=== PATIENT | female | born 1985 | race American Indian/Alaskan Native ===

== ENCOUNTER 2016-12-09 10:21 | Emergency (ER) | payer MEDICAID, OTHER ==
[2016-12-09 10:38] VITALS: BP 120/73
--- NOTE | 2016-12-09 13:00 | Emergency Department Report ---
ED ENT HPI - General Chief complaint: Dental/Oral Stated complaint: TOOTHACHE Time Seen by Provider: 12/09/16 12:39 Source: patient Mode of arrival: Ambulatory Limitations: No Limitations - History of Present Illness MD complaint: tooth pain -: Gradual 1 - decay to gumline. no trismus. Associated Symptoms: toothache. denies: fever, gum swelling - Related Data Previous Rx's Medication Instructions Recorded Last Taken Type Ibuprofen [Motrin 800 MG tab] 800 mg PO TID PRN #30 tablet 03/28/15 Unknown Rx Penicillin Vk [Veetids TAB] 500 mg PO QID #40 tablet 03/28/15 Unknown Rx traMADol [Ultram 50 MG tab] 50 mg PO Q6HR PRN #12 tablet 12/09/16 Unknown Rx Allergies Allergy/AdvReac Type Severity Reaction Status Date / Time No Known Allergies Allergy Unverified 03/28/15 15:22 ED Dental HPI - General Chief complaint: Dental/Oral Stated complaint: TOOTHACHE Time Seen by Provider: 12/09/16 12:39 Source: patient Mode of arrival: Ambulatory Limitations: No Limitations - History of Present Illness MD complaint: tooth pain Quality: aching Worsens with: chewing, hot/cold liquids Context- Dental: history of dental caries - Related Data Previous Rx's Medication Instructions Recorded Last Taken Type Ibuprofen [Motrin 800 MG tab] 800 mg PO TID PRN #30 tablet 03/28/15 Unknown Rx Penicillin Vk [Veetids TAB] 500 mg PO QID #40 tablet 03/28/15 Unknown Rx traMADol [Ultram 50 MG tab] 50 mg PO Q6HR PRN #12 tablet 12/09/16 Unknown Rx Allergies Allergy/AdvReac Type Severity Reaction Status Date / Time No Known Allergies Allergy Unverified 03/28/15 15:22 ED Review of Systems ROS: Stated complaint: TOOTHACHE Other details as noted in HPI Constitutional: denies: chills, fever Eyes: denies: eye pain, eye discharge, vision change ENT: dental pain. denies: ear pain, throat pain Respiratory: denies: cough, shortness of breath, wheezing Cardiovascular: denies: chest pain, palpitations Endocrine: no symptoms reported Gastrointestinal: denies: abdominal pain, nausea, diarrhea Genitourinary: denies: urgency, dysuria, discharge Musculoskeletal: denies: back pain, joint swelling, arthralgia Skin: denies: rash, lesions Neurological: denies: headache, weakness, paresthesias Psychiatric: denies: anxiety, depression Hematological/Lymphatic: denies: easy bleeding, easy bruising ED Past Medical Hx - Past Medical History Previous Medical History?: No - Surgical History Past Surgical History?: Yes Additional Surgical History: - Social History Smoking Status: Never Smoker Substance Use Type: None - Medications Home Medications: Home Medications Medication Instructions Recorded Confirmed Last Taken Type Ibuprofen [Motrin 800 MG tab] 800 mg PO TID PRN #30 tablet 03/28/15 Unknown Rx Penicillin Vk [Veetids TAB] 500 mg PO QID #40 tablet 03/28/15 Unknown Rx traMADol [Ultram 50 MG tab] 50 mg PO Q6HR PRN #12 tablet 12/09/16 Unknown Rx ED Physical Exam - General Limitations: No Limitations General appearance: alert, in no apparent distress - Head Head exam: Present: atraumatic, normocephalic - Eye Eye exam: Present: normal appearance - ENT ENT exam: Present: mucous membranes moist - Expanded ENT Exam Expanded Mouth exam: Absent: drooling, trismus Teeth exam: Present: dental caries, dental tenderness # - Neck Neck exam: Present: normal inspection - Respiratory Respiratory exam: Present: normal lung sounds bilaterally. Absent: respiratory distress - Cardiovascular Cardiovascular Exam: Present: regular rate, normal rhythm. Absent: systolic murmur, diastolic murmur, rubs, gallop - Neurological Exam Neurological exam: Present: alert, oriented X3 - Skin Skin exam: Present: warm, dry, intact, normal color. Absent: rash ED Course Vital Signs 12/09/16 10:36 Temperature 99.6 F Pulse Rate 84 Respiratory 18 Rate Blood Pressure 120/73 O2 Sat by Pulse 99 Oximetry Critical care attestation.: If time is entered above; I have spent that time in minutes in the direct care of this critically ill patient, excluding procedure time. ED Disposition Clinical Impression: Dental infection Disposition: DISCHARGED TO HOME OR SELFCARE Is pt being admited?: No Condition: Stable Instructions: Dental Caries (ED) Prescriptions: traMADol [Ultram 50 MG tab] 50 mg PO Q6HR PRN #12 tablet PRN Reason: Pain Referrals: PRIMARY CARE,MD [Primary Care Provider] - 3-5 Days
== END 2016-12-09 13:10 | disposition home or self-care (01) ==
LOC: ED 10:21
DX: K02.9 Dental caries, unspecified (principal)
CPT/HCPCS: 99282

== ENCOUNTER 2017-02-04 11:31 | Emergency (ER) | payer SELFPAY ==
[2017-02-04 12:41] VITALS: BP 114/70
--- NOTE | 2017-02-04 16:13 | Emergency Department Report ---
HPI - General Chief Complaint: Skin/Abscess/Foreign Body Time Seen by Provider: 02/04/17 16:03 - HPI HPI: Patient here reports this to right wrist off and on for months. She said she's had this same problem in the past and would go away and come back. She said it' s painful today. Denies any injury. Pain is 7 out of 10. No radiation of pain. Pain is achy only to touch. She says she was seen here in the past for the same thing and was told that she is to follow-up with surgery for biopsy of the area but she did not get to follow-up. She reports that they gave her Ultram last time and it helped. ED Past Medical Hx - Past Medical History Previous Medical History?: No - Surgical History Past Surgical History?: Yes Additional Surgical History: X 4 - Family History Family history: no significant - Social History Smoking Status: Never Smoker Substance Use Type: None - Medications Home Medications: Home Medications Medication Instructions Recorded Confirmed Last Taken Type traMADol [Ultram 50 MG tab] 50 mg PO Q6HR PRN #20 tablet 02/04/17 Unknown Rx ED Review of Systems ROS: Stated complaint: CYST Other details as noted in HPI Comment: All other systems reviewed and negative Constitutional: denies: chills, fever Respiratory: no symptoms reported Cardiovascular: denies: chest pain, palpitations, edema, syncope Gastrointestinal: denies: nausea, vomiting Musculoskeletal: denies: back pain, joint swelling Skin: other (mass right upper extremity) Neurological: denies: headache, numbness, paresthesias Physical Exam - Physical Exam Vital Signs: Vital Signs 02/04/17 12:38 Temperature 98.8 F Pulse Rate 106 H Respiratory 18 Rate Blood Pressure 114/70 O2 Sat by Pulse 98 Oximetry General: This is a 31-year-old female well-nourished well-developed in no acute distress. Physical Exam: Head: Normocephalic atraumatic Mouth: Moist, no pharyngeal exudate or erythema. Uvula is midline and oral airway is patent. No gingival enlargement or dental tenderness. No facial swelling. No peritonsillar abscesses. Neck: Supple, no C-spine tenderness, no tracheal deviation. Nontender to palpate. no adenopathy Lungs: Air to auscultate bilaterally no rhonchi wheezes or rales. Normal work of breathing extremity; No CCE. +2 pulses. No neurovascular compromise. No signs of tendon injury. Extremity with good color, sensation, movement in temperature. Cardiovascular: S1-S2, regular rate rhythm. No murmurs. Capillary refill less than 3 seconds. Skin: clean Dry and intact. Noted dime sizemass to right dorsal aspect of his wrist . Patient able to flex and extend her wrist without any pain. Positive induration without any fluctuance. Tender to Palpate. No signs of infection noted. Psych: Normal mood and behavior. ED Course Vital Signs 02/04/17 12:38 Temperature 98.8 F Pulse Rate 106 H Respiratory 18 Rate Blood Pressure 114/70 O2 Sat by Pulse 98 Oximetry Vital Signs 02/04/17 02/04/17 12:38 16:45 Temperature 98.8 F Pulse Rate 106 H 88 Respiratory 18 Rate Blood Pressure 114/70 O2 Sat by Pulse 98 Oximetry ED Medical Decision Making - Medical Decision Making ED course:Patient discharged home with diagnosis of mass that needs to be evaluated by surgeon. She doesn't have a primary care physician so I referred her to [facility] and also to surgery. He was undescended discharge instruction and treatment plan. VSS stable and she is afebrile prior to discharge. Given prescription for Ultram prior to discharge. Critical care attestation.: If time is entered above; I have spent that time in minutes in the direct care of this critically ill patient, excluding procedure time. ED Disposition Clinical Impression: Mass of right upper extremity Pain, upper extremity Qualifiers: Laterality: right Qualified Code(s): M79.601 - Pain in right arm Disposition: DISCHARGED TO HOME OR SELFCARE Is pt being admited?: No Does the pt Need Aspirin: No Condition: Stable Instructions: Superficial Mass Needle Biopsy (ED) Prescriptions: traMADol [Ultram 50 MG tab] 50 mg PO Q6HR PRN #20 tablet PRN Reason: Pain Referrals: [facility] [Outside] - 2-3 Days SARAH CONTRERAS MD [Staff Physician] - 2-3 Days Forms: Work/School Release Form(ED)
== END 2017-02-04 16:47 | disposition home or self-care (01) ==
LOC: ED 11:31
DX: R22.31 Localized swelling, mass and lump, right upper limb (principal); M79.601 Pain in right arm
CPT/HCPCS: 99282

== ENCOUNTER 2017-12-05 12:23 | Emergency (ER) | payer SELFPAY ==
[2017-12-05 12:28] VITALS: BP 116/67
--- NOTE | 2017-12-05 14:17 | Emergency Department Report ---
HPI - General Chief Complaint: Dental/Oral Time Seen by Provider: 12/05/17 14:09 - HPI HPI: 32 yo female presents with tooth pain. Has broken tooth at area. Upper left ridge. No facial tenderness. Gradual 10/10 pain. No neck pain. No respiratory distress. ED Past Medical Hx - Past Medical History Previous Medical History?: No - Surgical History Additional Surgical History: X 4 - Social History Smoking Status: Never Smoker Substance Use Type: None - Medications Home Medications: Home Medications Medication Instructions Recorded Confirmed Last Taken Type Ibuprofen 800 mg PO TID PRN #20 tablet 12/05/17 Unknown Rx Penicillin V Potassium 500 mg PO QID 10 Days #40 tablet 12/05/17 Unknown Rx traMADol [Ultram 50 MG tab] 50 mg PO Q4HR PRN #20 tablet 12/05/17 Unknown Rx ED Review of Systems ROS: Stated complaint: TOOTHACHE Other details as noted in HPI Constitutional: denies: chills, fever ENT: denies: ear pain, throat pain Respiratory: denies: cough, shortness of breath Cardiovascular: denies: chest pain Physical Exam - Physical Exam Vital Signs: Vital Signs 12/05/17 12:26 Temperature 98.3 F Pulse Rate 90 Respiratory 18 Rate Blood Pressure 116/67 O2 Sat by Pulse 99 Oximetry Physical Exam: General: Well-appearing, no acute distress HEENT: Normocephalic atraumaticanicteric sclera Nose: no rhinorrhea Oropharynx: tooth #13, decayed to root with surrounding redness and edema no fluctuance Neck: supple, no meningismus no edema Chest: Clear to auscultation bilaterally no rales rhonchi no wheezes Cardiac: Regular rate and rhythm no murmurs no rubs no gallops Neuro: Moves all extremities 4, no gross deficits Psychiatric: Alert and oriented 4 normal aspect normal judgment normal inside ED Course Vital Signs 12/05/17 12:26 Temperature 98.3 F Pulse Rate 90 Respiratory 18 Rate Blood Pressure 116/67 O2 Sat by Pulse 99 Oximetry ED Medical Decision Making - Medical Decision Making Infected dental caries at tooth socket #13 without facial swelling or neck swelling Prescription: norco, IBU, penicillin Critical care attestation.: If time is entered above; I have spent that time in minutes in the direct care of this critically ill patient, excluding procedure time. ED Disposition Clinical Impression: Infected dental caries Disposition: DC- TO HOME OR SELFCARE Is pt being admited?: No Does the pt Need Aspirin: No Condition: Stable Instructions: Dental Abscess (ED), Dental Caries (ED) Prescriptions: Ibuprofen 800 mg PO TID PRN #20 tablet PRN Reason: Pain Penicillin V Potassium 500 mg PO QID 10 Days #40 tablet traMADol [Ultram 50 MG tab] 50 mg PO Q4HR PRN #20 tablet PRN Reason: Pain Referrals: [facility] [Outside] - 3-5 Days [facility] [Outside] - 3-5 Days Time of Disposition: 14:18
== END 2017-12-05 15:35 | disposition home or self-care (01) ==
LOC: ED 12:23
DX: K02.9 Dental caries, unspecified (principal)
CPT/HCPCS: 99282

== ENCOUNTER 2018-01-15 18:07 | Emergency (ER) | payer SELFPAY ==
[2018-01-15 18:23] VITALS: BP 123/65
[2018-01-15] MEDS ORDERED: MOTRIN PO ONE (20:03)
--- NOTE | 2018-01-15 20:07 | Emergency Department Report ---
HPI - General Chief Complaint: Dental/Oral Time Seen by Provider: 01/15/18 20:03 - HPI HPI: The patient is a 32-year-old female with a long history of dental issues, presents for evaluation of mouth and tooth pain. The patient reports left upper toothache for the past one day, constant, throbbing in quality, severe, exacerbated with attempted eating/chilling. The patient denies trauma to the mouth, patient swelling, purulent drainage or discharge from the mouth, dyspnea , neck stiffness, dysphagia, stridor, drooling, difficulty tolerating secretions, dysphonia, hoarseness of voice, abdominal pain. ED Past Medical Hx - Past Medical History Previous Medical History?: No - Surgical History Past Surgical History?: Yes Additional Surgical History: X 4 - Social History Smoking Status: Never Smoker Substance Use Type: None - Medications Home Medications: Home Medications Medication Instructions Recorded Confirmed Last Taken Type Ibuprofen 800 mg PO TID PRN #20 tablet 12/05/17 Unknown Rx traMADol [Ultram 50 MG tab] 50 mg PO Q4HR PRN #20 tablet 12/05/17 Unknown Rx Chlorhexidine Mouthwash [Peridex] 15 ml MM BID #1 bottle 01/15/18 Unknown Rx Ibuprofen [Motrin] 800 mg PO Q8HR PRN #15 tablet 01/15/18 Unknown Rx Penicillin Vk [Veetids TAB] 250 mg PO QID #20 tablet 01/15/18 Unknown Rx traMADol [Ultram 50 MG tab] 50 mg PO Q6HR PRN #20 tablet 01/15/18 Unknown Rx ED Review of Systems ROS: Stated complaint: TOOTHACHE Other details as noted in HPI Constitutional: denies: fever ENT: reports toothache denies: throat or neck pain Respiratory: denies: cough, shortness of breath Cardiovascular: denies: chest pain Endocrine: denies unexplained weight loss or gain Gastrointestinal: denies: abdominal pain, nausea Genitourinary: denies: dysuria Musculoskeletal: denies: leg swelling Skin: denies: rash Neurological: denies: headache Hematological/Lymphatic: denies: easy bleeding or easy bruising Psych: denies sadness or hopelessness Physical Exam - Physical Exam Vital Signs: Vital Signs 01/15/18 18:20 Temperature 98.6 F Pulse Rate 95 H Respiratory 16 Rate Blood Pressure 123/65 O2 Sat by Pulse 98 Oximetry Physical Exam: General: well-nourished, well-developed, no acute distress Head: Normocephalic, atraumatic Eyes: normal sclera ENT: Mucous membranes are pink and moist , multiple dental caries present throughout, General caries extending into the pole present to the left upper first molar, adjacent gingival erythema present, no gingival fluctuance Neck: trachea midline, neck supple, No neck stiffness, no cervical adenopathy Respiratory: Breath sounds equal bilaterally, no wheezing, rales, or rhonchi Cardio: S1 and S2 present, no murmurs, rubs, gallops, capillary refill is brisk Musc: No pitting edema Skin: No rash Neuro: no facial drooping, normal speech Psych: Normal affect ED Course Vital Signs 01/15/18 18:20 Temperature 98.6 F Pulse Rate 95 H Respiratory 16 Rate Blood Pressure 123/65 O2 Sat by Pulse 98 Oximetry ED Medical Decision Making - Medical Decision Making The patient's and examined by myself. The patient's found to have severe dental caries and adjacent gingival erythema concerning for mild gingival infection. The patient given pain medicine. The patient will be given a prescription for penicillin VK and pain medicine. The patient was reevaluated and reported that their symptoms were markedly improved. The patient is stable for discharge with outpatient follow-up. The patient is given follow-up and return instructions. The patient expressed understanding and agreed with the plan. The patient is discharged in stable condition. Critical care attestation.: If time is entered above; I have spent that time in minutes in the direct care of this critically ill patient, excluding procedure time. ED Disposition Clinical Impression: Dental caries extending into pulp, Toothache Disposition: TO HOME OR SELFCARE Is pt being admited?: No Does the pt Need Aspirin: No Condition: Stable Instructions: Dental Caries (ED), Toothache (ED) Prescriptions: Chlorhexidine Mouthwash [Peridex] 15 ml MM BID #1 bottle Ibuprofen [Motrin] 800 mg PO Q8HR PRN #15 tablet PRN Reason: Pain Penicillin Vk [Veetids TAB] 250 mg PO QID #20 tablet traMADol [Ultram 50 MG tab] 50 mg PO Q6HR PRN #20 tablet PRN Reason: Pain Referrals: [facility] [Outside] - 3-5 Days [facility] [Outside] - 3-5 Days Time of Disposition: 20:04
== END 2018-01-15 20:33 | disposition home or self-care (01) ==
LOC: ED 18:07
DX: K02.9 Dental caries, unspecified (principal)
CPT/HCPCS: 99282

== ENCOUNTER 2019-05-07 14:56 | Emergency (ER) | payer MEDICAID, OTHER ==
[2019-05-07 15:11] VITALS: BP 117/72
--- NOTE | 2019-05-07 15:12 | Emergency Department Report ---
Blank Doc - Documentation Documentation: Patient report toothache x 2 days located left side . Located on left side No distress
[2019-05-07] MEDS ORDERED: ULTRAM PO ONE (15:26)
[2019-05-07] MEDS ORDERED: TRIMOX PO ONE (15:26)
--- NOTE | 2019-05-07 15:26 | Emergency Department Report ---
Abscess Boil HPI - HPI Chief Complaint: Dental/Oral Stated Complaint: TOOTHACHE Time Seen by Provider: 05/07/19 15:10 Duration: 5 Days Location: Other Severity: Mild History: Yes Pain, Yes Previous History, No Fever, No Purulent Drainage, No Numbness, No Foreign Body, No Insect Bite HPI: Patient is a 33-year-old female who comes to the ER complaining of left- sided dental pain for 3 days. It is lower left mandibular molar area. There is no abscess. Patient is approximately 6 weeks. In review of the EMR patient has been here numerous times for dental caries. I discussed with the patient that we were doing this only temporarily fixing the problem and that she needs to see a dentist. ABCs intact. Vital signs are stable. There is no trismus. She is taking by mouth. There is no abscess. Home Medications: Previous Rx's Medication Instructions Recorded Last Taken Type Amoxicillin [Trimox CAP] 500 mg PO BID #20 capsule 05/07/19 Unknown Rx traMADol [Ultram] 50 mg PO Q6HR PRN #10 tablet 05/07/19 Unknown Rx Allergies/Adverse Reactions: Allergies Allergy/AdvReac Type Severity Reaction Status Date / Time No Known Allergies Allergy Verified 05/07/19 15:00 ED Review of Systems ROS: Stated complaint: TOOTHACHE Other details as noted in HPI Comment: All other systems reviewed and negative ED Past Medical Hx - Past Medical History Previous Medical History?: No - Surgical History Past Surgical History?: Yes Additional Surgical History: X 4 - Social History Smoking Status: Never Smoker Substance Use Type: None - Medications Home Medications: Home Medications Medication Instructions Recorded Confirmed Last Taken Type Amoxicillin [Trimox CAP] 500 mg PO BID #20 capsule 05/07/19 Unknown Rx traMADol [Ultram] 50 mg PO Q6HR PRN #10 tablet 05/07/19 Unknown Rx ED Abscess Boil Physical Exam - Exam General: Vital signs noted. No distress. Alert and acting appropriately. Exam: WDWN patient in NAD. VS per RN flow sheet. Alert and oriented to person, place and time. S1-S2. No S3 or S4. No systolic or diastolic murmur. No JVD. No pitting edema. Lungs clear to auscultation bilaterally anteriorly and posteriorly. Abdomen soft nontender bowel soundsx4. Moves all extremities well. Mood and affect appropriate. diffuse caries noted mandibular left side. no abscess. TEETH 17-20 INVOLVED ED Course Vital Signs 05/07/19 15:10 Temperature 98.3 F Pulse Rate 102 H Respiratory 16 Rate Blood Pressure 117/72 O2 Sat by Pulse 100 Oximetry Critical care attestation.: If time is entered above; I have spent that time in minutes in the direct care of this critically ill patient, excluding procedure time. ED Medical Decision Making - Medical Decision Making dental caries post no gingival abscess no trismus taking po dc home with dmd follow up Vital Signs 05/07/19 15:10 Temperature 98.3 F Pulse Rate 102 H Respiratory 16 Rate Blood Pressure 117/72 O2 Sat by Pulse 100 Oximetry - Differential Diagnosis dental pain- ro abscess ED Disposition Clinical Impression: Dental caries Disposition: DC- TO HOME OR SELFCARE Is pt being admited?: No Does the pt Need Aspirin: No Condition: Stable Instructions: Dental Caries (ED) Additional Instructions: meds as ordered today motrin and tylenol can be used for mild pain ultram for severe pain FOLLOW UP WITH DMD DEYANIRA SEE LIST PROVIDED. Prescriptions: Amoxicillin [Trimox CAP] 500 mg PO BID #20 capsule traMADol [Ultram] 50 mg PO Q6HR PRN #10 tablet PRN Reason: Pain Referrals: [facility] [Outside] - 3-5 Days [facility] [Outside] - 3-5 Days Time of Disposition: 15:34
== END 2019-05-07 15:59 | disposition home or self-care (01) ==
LOC: ED 14:56
DX: K02.9 Dental caries, unspecified (principal)
CPT/HCPCS: 99282

== ENCOUNTER 2019-05-16 10:12 | Emergency (ER) | payer MEDICAID ==
[2019-05-16 10:18] VITALS: BP 124/69
--- NOTE | 2019-05-16 11:02 | Emergency Department Report ---
HPI - General Chief Complaint: Dental/Oral Time Seen by Provider: 05/16/19 10:47 - HPI HPI: 33-year-old female presents to the emergency department with a complaint of pain to the left upper jaw from a toothache that has been going on for the past 3-4 days. The patient says that she has tried some [id number] Tylenol and ibuprofen without much relief. No fever. No difficulty swallowing. No swelling of the face. The patient was here 9 days ago on 05/07/19 for similar symptoms and was prescribed amoxicillin and tramadol. She was also given a referral for a dentist. She has not seen a dentist for her symptoms because she says "dentists scare me." Patient just gave about 2 months ago. I looked the patient up on the [employer] prescription monitoring system and she has 5 prescriptions that have been filled since March. The ones filled in March were secondary to her recent and delivery and recovery. The patient says that she did not nut picker the medication as prescribed 9 days ago because she did not have the money to pay for it but did take the antibiotics. ED Past Medical Hx - Past Medical History Previous Medical History?: Yes Additional medical history: Vaginal x 1 that was stillborn - Surgical History Past Surgical History?: Yes Additional Surgical History: X 4 - Social History Smoking Status: Never Smoker Substance Use Type: None - Medications Home Medications: Home Medications Medication Instructions Recorded Confirmed Last Taken Type Amoxicillin [Trimox CAP] 500 mg PO BID #20 capsule 05/07/19 Unknown Rx Sulfamethoxazole/Trimethoprim 1 each PO BID #14 tablet 05/16/19 Unknown Rx [Bactrim DS TAB] traMADol [Ultram 50 MG tab] 50 mg PO Q6HR PRN #8 tablet 05/16/19 Unknown Rx ED Review of Systems ROS: Stated complaint: TOOTHACHE Other details as noted in HPI Comment: All other systems reviewed and negative Constitutional: denies: chills, fever ENT: dental pain. denies: throat pain Respiratory: denies: cough, shortness of breath Skin: denies: rash, lesions Physical Exam - Physical Exam Vital Signs: Vital Signs 05/16/19 10:14 Temperature 98.1 F Pulse Rate 94 H Respiratory 18 Rate Blood Pressure 124/69 O2 Sat by Pulse 100 Oximetry Physical Exam: GENERAL: The patient is well-developed well-nourished. HENT: Normocephalic. Atraumatic. Patient has moist mucous membranes. Posterior pharynx is clear. She has multiple dental caries. She has some tenderness along the left upper gumline and teeth but no obvious palpable or visible abscess. No drooling or trismus. EYES: Extraocular motions are intact. Pupils equal reactive to light bilaterally. NECK: Supple. Trachea is midline. ABDOMEN: There is no abdominal distention. SKIN: Skin is warm and dry. NEURO: The patient is awake, alert, and oriented. The patient is cooperative. The patient has no focal neurologic deficits. The patient has normal speech. MUSCULOSKELETAL: There is no tenderness or deformity. There is no evidence of acute injury. ED Course Vital Signs 05/16/19 10:14 Temperature 98.1 F Pulse Rate 94 H Respiratory 18 Rate Blood Pressure 124/69 O2 Sat by Pulse 100 Oximetry ED Medical Decision Making - Medical Decision Making Presents to the emergency department with a complaint of some left upper jaw and tooth pain consistent with a toothache. The patient was here 9 days ago for similar symptoms. She has not followed up with any dentists. On examination she does not have any palpable or visible abscess. There is no drooling or trismus. Vital signs are stable including being afebrile. I did not feel that any laboratory testing was necessary at this time. There is no facial swelling. At first I told patient that the plan would be for outpatient dental referral and antibiotics. I have checked the [place] prescription monitoring system and she had filled 5 different opiate prescriptions since March. 3 of those, in March, were related to her and recovery. I later decided to give the patient a very small amount of pain medication, along with the antibiotics. However it appears that once the patient heard that she would not be receiving o piate/narcotic medication, she eloped from the emergency department without the antibiotics, referrals, or her discharge paperwork. - Differential Diagnosis toothache, dental abscess, dental caries Critical Care Time: No Critical care attestation.: If time is entered above; I have spent that time in minutes in the direct care of this critically ill patient, excluding procedure time. ED Disposition Clinical Impression: Dental caries, Dentalgia Disposition: ELOPED Is pt being admited?: No Condition: Stable Instructions: Dental Caries (ED), Toothache (ED) Additional Instructions: Please follow up with a dentist in the next few days without fail. Return to the emergency Department with any worsening of your symptoms, signs of infection such as abscess formation, development of fever, facial swelling, increased or new pains, or with any acute distress. Take the antibiotics as prescribed. You have been prescribed a medication that is sedating and therefore should not be taken prior to driving, working, and responsible for children and in no way should be mixed with alcohol of any quantity. Prescriptions: Sulfamethoxazole/Trimethoprim [Bactrim DS TAB] 1 each PO BID #14 tablet traMADol [Ultram 50 MG tab] 50 mg PO Q6HR PRN #8 tablet PRN Reason: Pain Referrals: [facility] [Outside] - 2-3 Days Time of Disposition: 11:02
== END 2019-05-16 11:07 | disposition left against medical advice (07) ==
LOC: ED 10:12
DX: K02.9 Dental caries, unspecified (principal)
CPT/HCPCS: 99281

== ENCOUNTER 2019-06-24 17:39 | Emergency (ER) | payer SELFPAY ==
[2019-06-24 17:58] VITALS: BP 125/58
--- NOTE | 2019-06-24 18:01 | Emergency Department Report ---
ED ENT HPI - General Chief complaint: Dental/Oral Stated complaint: TOOTHACHE Time Seen by Provider: 06/24/19 17:56 Source: patient Mode of arrival: Ambulatory Limitations: No Limitations - History of Present Illness Initial comments: pt is a 33 yo female who presents to the ED with c/o frontal and left upper dental pain that began a couple of days ago. she states she cracked her front tooth last week. she denies any fever, no N/V, no facial edema. no PMHx. no allergies to meds. pt is tolerating secretions and PO intake. - Related Data Previous Rx's Medication Instructions Recorded Last Taken Type Amoxicillin [Trimox CAP] 500 mg PO BID #20 capsule 05/07/19 Unknown Rx Sulfamethoxazole/Trimethoprim 1 each PO BID #14 tablet 05/16/19 Unknown Rx [Bactrim DS TAB] traMADol [Ultram 50 MG tab] 50 mg PO Q6HR PRN #8 tablet 05/16/19 Unknown Rx Ibuprofen [Motrin 600 MG tab] 600 mg PO Q8H PRN #10 tablet 06/24/19 Unknown Rx Penicillin Vk [Veetids TAB] 500 mg PO QID 7 Days #56 tablet 06/24/19 Unknown Rx traMADol [Ultram 50 MG tab] 50 mg PO Q6HR PRN #4 tablet 06/24/19 Unknown Rx Allergies Allergy/AdvReac Type Severity Reaction Status Date / Time No Known Allergies Allergy Verified 06/24/19 17:40 ED Dental HPI - General Chief complaint: Dental/Oral Stated complaint: TOOTHACHE Time Seen by Provider: 06/24/19 17:56 Source: patient Mode of arrival: Ambulatory Limitations: No Limitations - Related Data Previous Rx's Medication Instructions Recorded Last Taken Type Amoxicillin [Trimox CAP] 500 mg PO BID #20 capsule 05/07/19 Unknown Rx Sulfamethoxazole/Trimethoprim 1 each PO BID #14 tablet 05/16/19 Unknown Rx [Bactrim DS TAB] traMADol [Ultram 50 MG tab] 50 mg PO Q6HR PRN #8 tablet 05/16/19 Unknown Rx Ibuprofen [Motrin 600 MG tab] 600 mg PO Q8H PRN #10 tablet 06/24/19 Unknown Rx Penicillin Vk [Veetids TAB] 500 mg PO QID 7 Days #56 tablet 06/24/19 Unknown Rx traMADol [Ultram 50 MG tab] 50 mg PO Q6HR PRN #4 tablet 06/24/19 Unknown Rx Allergies Allergy/AdvReac Type Severity Reaction Status Date / Time No Known Allergies Allergy Verified 06/24/19 17:40 ED Review of Systems ROS: Stated complaint: TOOTHACHE Other details as noted in HPI Comment: All other systems reviewed and negative ED Past Medical Hx - Past Medical History Previous Medical History?: No Additional medical history: Vaginal x 1 that was stillborn - Surgical History Past Surgical History?: Yes Additional Surgical History: X 4 - Social History Smoking Status: Never Smoker Substance Use Type: None - Medications Home Medications: Home Medications Medication Instructions Recorded Confirmed Last Taken Type Amoxicillin [Trimox CAP] 500 mg PO BID #20 capsule 05/07/19 Unknown Rx Sulfamethoxazole/Trimethoprim 1 each PO BID #14 tablet 05/16/19 Unknown Rx [Bactrim DS TAB] traMADol [Ultram 50 MG tab] 50 mg PO Q6HR PRN #8 tablet 05/16/19 Unknown Rx Ibuprofen [Motrin 600 MG tab] 600 mg PO Q8H PRN #10 tablet 06/24/19 Unknown Rx Penicillin Vk [Veetids TAB] 500 mg PO QID 7 Days #56 tablet 06/24/19 Unknown Rx traMADol [Ultram 50 MG tab] 50 mg PO Q6HR PRN #4 tablet 06/24/19 Unknown Rx ED Physical Exam - General Limitations: No Limitations General appearance: alert, in no apparent distress - Head Head exam: Present: atraumatic, normocephalic - Eye Eye exam: Present: normal appearance - ENT ENT exam: Present: normal orophraynx, mucous membranes moist, other (front tooth is cracked in half, left upper jaw also has just reminents of a tooth left over, small pustule on the front gumline, no facial edema, no uvular edema, uvula is midline) ED Course Vital Signs 06/24/19 17:56 Temperature 98.5 F Pulse Rate 110 H Respiratory 16 Rate Blood Pressure 125/58 [Left] O2 Sat by Pulse 100 Oximetry ED Medical Decision Making - Medical Decision Making pt is a 33 yo female who presents to the ED with c/o frontal and left upper dental pain that began a couple of days ago. she states she cracked her front tooth last week. she denies any fever, no N/V, no facial edema. no PMHx. no allergies to meds. pt is tolerating secretions and PO intake. VSS. on exam: front tooth is cracked in half, left upper jaw also has just reminents of a tooth left over, small pustule on the front gumline, no facial edema, no uvular edema, uvula is midline. given prescription for ibuprofen, penicillin, and very short course of tramadol for severe pain. advised to please take medication as prescribed. do not drive or operate heavy machinery while taking pain medication. follow up with a dentist in the next 2-3 days. it is very important you follow up with a dentist for a permanent solution. given a list of community dental clinics. return to the emergency room for any new or worsening symptoms Critical care attestation.: If time is entered above; I have spent that time in minutes in the direct care of this critically ill patient, excluding procedure time. ED Disposition Clinical Impression: Dental caries, Cracked tooth Disposition: TO HOME OR SELFCARE Is pt being admited?: No Does the pt Need Aspirin: No Condition: Stable Instructions: Dental Caries (ED) Additional Instructions: please take medication as prescribed. do not drive or operate heavy machinery while taking pain medication. follow up with a dentist in the next 2-3 days. it is very important you follow up with a dentist for a permanent solution. given a list of community dental clinics. return to the emergency room for any new or worsening symptoms Prescriptions: Ibuprofen [Motrin 600 MG tab] 600 mg PO Q8H PRN #10 tablet PRN Reason: Pain traMADol [Ultram 50 MG tab] 50 mg PO Q6HR PRN #4 tablet PRN Reason: Pain , Severe (7-10) Penicillin Vk [Veetids TAB] 500 mg PO QID 7 Days #56 tablet Referrals: a, dentist [Other] - 2-3 Days Time of Disposition: 18:14 Print Language: SLOVAK
== END 2019-06-24 18:25 | disposition home or self-care (01) ==
LOC: ED 17:39
DX: K02.9 Dental caries, unspecified (principal); K03.81 Cracked tooth; Z98.890 Other specified postprocedural states; Z79.899 Other long term (current) drug therapy
CPT/HCPCS: 99282

== ENCOUNTER 2019-07-14 15:51 | Emergency (ER) | payer SELFPAY ==
[2019-07-14 16:05] VITALS: BP 139/85
--- NOTE | 2019-07-14 16:09 | Emergency Department Report ---
ED ENT HPI - General Chief complaint: Dental/Oral Stated complaint: TOOTHACHE Time Seen by Provider: 07/14/19 16:02 Source: patient Mode of arrival: Ambulatory Limitations: No Limitations - History of Present Illness Initial comments: This is a 33-year-old female nontoxic well in appearance with no signs of distress presents to the ED with complaint of toothache. Patient denies any facial swelling. Denies following up with a dentist. Denies any fever, chills, headache, nausea, vomiting, chest pain or SOB. Denies any other complaints. Denies any allergies. MD complaint: tooth pain -: month(s) Location: tooth # Severity: mild Severity scale (0 -10): 8 Quality: aching Consistency: constant Improves with: none Worsens with: none Context- Dental: history of dental caries, poor dental care Associated Symptoms: gum swelling, toothache. denies: fever, cough, pain with swallowing, sore throat, tinnitus, hearing loss, discharge from ear, rhinorrhea - Related Data Previous Rx's Medication Instructions Recorded Last Taken Type Amoxicillin [Trimox CAP] 500 mg PO BID #20 capsule 05/07/19 Unknown Rx Sulfamethoxazole/Trimethoprim 1 each PO BID #14 tablet 05/16/19 Unknown Rx [Bactrim DS TAB] traMADol [Ultram 50 MG tab] 50 mg PO Q6HR PRN #8 tablet 05/16/19 Unknown Rx Ibuprofen [Motrin 600 MG tab] 600 mg PO Q8H PRN #10 tablet 06/24/19 Unknown Rx Penicillin Vk [Veetids TAB] 500 mg PO QID 7 Days #56 tablet 06/24/19 Unknown Rx traMADol [Ultram 50 MG tab] 50 mg PO Q6HR PRN #4 tablet 06/24/19 Unknown Rx Amoxicillin [Amoxicillin TAB] 875 mg PO BID #20 tablet 07/14/19 Unknown Rx Ibuprofen [Motrin] 600 mg PO Q8H PRN #20 tablet 07/14/19 Unknown Rx Allergies Allergy/AdvReac Type Severity Reaction Status Date / Time No Known Allergies Allergy Verified 06/24/19 17:40 ED Dental HPI - General Chief complaint: Dental/Oral Stated complaint: TOOTHACHE Time Seen by Provider: 07/14/19 16:02 Source: patient Mode of arrival: Ambulatory Limitations: No Limitations - Related Data Previous Rx's Medication Instructions Recorded Last Taken Type Amoxicillin [Trimox CAP] 500 mg PO BID #20 capsule 05/07/19 Unknown Rx Sulfamethoxazole/Trimethoprim 1 each PO BID #14 tablet 05/16/19 Unknown Rx [Bactrim DS TAB] traMADol [Ultram 50 MG tab] 50 mg PO Q6HR PRN #8 tablet 05/16/19 Unknown Rx Ibuprofen [Motrin 600 MG tab] 600 mg PO Q8H PRN #10 tablet 06/24/19 Unknown Rx Penicillin Vk [Veetids TAB] 500 mg PO QID 7 Days #56 tablet 06/24/19 Unknown Rx traMADol [Ultram 50 MG tab] 50 mg PO Q6HR PRN #4 tablet 06/24/19 Unknown Rx Amoxicillin [Amoxicillin TAB] 875 mg PO BID #20 tablet 07/14/19 Unknown Rx Ibuprofen [Motrin] 600 mg PO Q8H PRN #20 tablet 07/14/19 Unknown Rx Allergies Allergy/AdvReac Type Severity Reaction Status Date / Time No Known Allergies Allergy Verified 06/24/19 17:40 ED Review of Systems ROS: Stated complaint: TOOTHACHE Other details as noted in HPI Constitutional: denies: chills, fever Eyes: denies: eye pain, eye discharge, vision change ENT: dental pain. denies: ear pain, throat pain Respiratory: denies: cough, shortness of breath, wheezing Cardiovascular: denies: chest pain, palpitations Endocrine: no symptoms reported Gastrointestinal: denies: abdominal pain, nausea, diarrhea Genitourinary: denies: urgency, dysuria, discharge Musculoskeletal: denies: back pain, joint swelling, arthralgia Skin: denies: rash, lesions Neurological: denies: headache, weakness, paresthesias Psychiatric: denies: anxiety, depression Hematological/Lymphatic: denies: easy bleeding, easy bruising ED Past Medical Hx - Past Medical History Previous Medical History?: No Additional medical history: Vaginal x 1 that was stillborn - Surgical History Past Surgical History?: Yes Additional Surgical History: X 4 - Social History Smoking Status: Never Smoker Substance Use Type: None - Medications Home Medications: Home Medications Medication Instructions Recorded Confirmed Last Taken Type Amoxicillin [Trimox CAP] 500 mg PO BID #20 capsule 05/07/19 Unknown Rx Sulfamethoxazole/Trimethoprim 1 each PO BID #14 tablet 05/16/19 Unknown Rx [Bactrim DS TAB] traMADol [Ultram 50 MG tab] 50 mg PO Q6HR PRN #8 tablet 05/16/19 Unknown Rx Ibuprofen [Motrin 600 MG tab] 600 mg PO Q8H PRN #10 tablet 06/24/19 Unknown Rx Penicillin Vk [Veetids TAB] 500 mg PO QID 7 Days #56 tablet 06/24/19 Unknown Rx traMADol [Ultram 50 MG tab] 50 mg PO Q6HR PRN #4 tablet 06/24/19 Unknown Rx Amoxicillin [Amoxicillin TAB] 875 mg PO BID #20 tablet 07/14/19 Unknown Rx Ibuprofen [Motrin] 600 mg PO Q8H PRN #20 tablet 07/14/19 Unknown Rx ED Physical Exam - General Limitations: No Limitations General appearance: alert, in no apparent distress - Head Head exam: Present: atraumatic, normocephalic - Expanded ENT Exam Expanded Ear exam: Present: normal external inspection Mouth exam: Present: normal external inspection. Absent: drooling, trismus, muffled voice Teeth exam: Present: dental caries, fractured tooth #, dental tenderness #, gingival enlargement, other (no facial swelling) Throat exam: Positive: normal inspection, other (uvula midline) - Neck Neck exam: Present: normal inspection, full ROM. Absent: tenderness, meningismus, lymphadenopathy - Extremities Exam Extremities exam: Present: normal inspection, full ROM - Back Exam Back exam: Present: normal inspection, full ROM - Neurological Exam Neurological exam: Present: alert, oriented X3, normal gait - Psychiatric Psychiatric exam: Present: normal affect, normal mood - Skin Skin exam: Present: warm, dry, intact, normal color. Absent: rash ED Course Vital Signs 07/14/19 16:03 Temperature 99.2 F Pulse Rate 103 H Respiratory 16 Rate Blood Pressure 139/85 [Left] O2 Sat by Pulse 100 Oximetry - Reevaluation(s) Reevaluation #1: 07/14/19 16:06 Patient is speaking in full sentences with no signs of distress noted. ED Medical Decision Making - Medical Decision Making Patient has been seen on mutiple occusions for dental pain. Patient is requesting for Tramadol. As this is a chorninc pain and has been interested to f/o with dentist but patient has not. Patient denies following up with dentist. Patient was instructed to Follow-up with a primary care doctor in 3-5 days or if symptoms worsen and continue return to emergency room as soon as possible. At time of discharge, the patient does not seem toxic or ill in appearance. No acute signs of distress noted. Patient agrees to discharge treatment plan of care. No further questions noted by the patient. Critical care attestation.: If time is entered above; I have spent that time in minutes in the direct care of this critically ill patient, excluding procedure time. ED Disposition Clinical Impression: Dental caries, Gingivitis Disposition: TO HOME OR SELFCARE Is pt being admited?: No Does the pt Need Aspirin: No Condition: Stable Additional Instructions: Follow-up with a dentist doctor in 3-5 days or if symptoms worsen and continue return to emergency room as soon as possible. Prescriptions: Amoxicillin [Amoxicillin TAB] 875 mg PO BID #20 tablet Ibuprofen [Motrin] 600 mg PO Q8H PRN #20 tablet PRN Reason: Pain Referrals: PRIMARY CARE, [Referring] - 3-5 Days WILEY AGUILAR MD [Staff Physician] - 3-5 Days [facility] [Outside] - 3-5 Days
== END 2019-07-14 17:00 | disposition home or self-care (01) ==
LOC: ED 15:51
DX: K05.10 Chronic gingivitis, plaque induced (principal); K02.9 Dental caries, unspecified
CPT/HCPCS: 99281